=== PATIENT | male | born 1965 | race Caucasian/White ===

== ENCOUNTER 2017-02-22 13:04 | Emergency (ER) | payer OTHER ==
[~2017-02-22] VITALS: Ht 175.3 cm; Wt 95.2 kg
--- NOTE | ~2017-02-22 | CR111 ---
[facility] A Service of [facility] RADIOLOGY TEXT RESULTS PATIENT: ANTHONY SAN LOCATION: [facility] : [id number] UNIT #: [id number] AGE: [address]: Joanne Garcia APRN SEX: M ORDER DR: [id number] [facility] [address] [place], [place] [address] [id number] MR#: [id number] Acc #: [id number] NAME: ANTHONY SAN : 1965 SEX: M STUDY DATE/TIME: 02/22/2017 14:59 UNIT: [facility] ROOM: STUDY DESCRIPTION: CR Finger 2 View 3rd Rt Attending Physician: Joanne Garcia A.P.R.N. Ordering Physician: Ed Willam Long M.D. Primary Care Physician: Primary Care Physician No MEDICAL IMAGING REPORT This report is preliminary unless electronic signature is present EXAM Right third digit HISTORY Hit door today, pain and swelling third digit at metacarpophalangeal joint. FINDINGS 3 views of the long finger demonstrates arthritic changes at the third MCP joint with asymmetric joint space narrowing and sclerosis of small amount of cystic change. Soft tissue swelling is noted over the PIP joint of the long finger. No fracture or foreign body. IMPRESSION 1. Mild arthritic changes third MCP joint, pattern most compatible osteoarthritis. 2. Soft tissue swelling over the dorsum of the PIP joint of the long finger. No fracture or foreign body. Dictated by... George Michelle M.D. THIS IS AN ELECTRONICALLY VERIFIED REPORT George Michelle M.D. at 02/23/2017 10:15 AM Ad TD: 02/23/2017 03:32 JOB #: [id number] MEDICAL IMAGING REPORT Page 1 of 1 COPY
[~2017-02-22 13:04] MED LIST: BAYER ASPIRIN325 M1 PO; CHOLESTEROL MED; COREG12.5 MG PO; FLEXERIL10 MG PO; KEFLEX500 MG PO; MOTRIN600 M1 PO; NO MEDICATIONS; PEPCID PO; PHENERGAN25 MG PO; PRILOSEC20 MG PO; VICODIN PO; ZOCOR80 MG PO; ZOFRAN PO
== END 2017-02-22 16:09 | disposition home or self-care (01) ==
LOC: CED 13:04 → CFTX 13:04
DX: S60.031A Contusion of right middle finger without damage to nail, initial encounter (principal); I10 Essential (primary) hypertension; I25.2 Old myocardial infarction; W23.0XXA Caught, crushed, jammed, or pinched between moving objects, initial encounter; Y92.009 Unspecified place in unspecified non-institutional (private) residence as the place of occurrence of the external cause
CPT/HCPCS: 29130; 73140; 90471; 90715; 99283